=== PATIENT | male | born 1985 | race Caucasian/White ===

== ENCOUNTER 2024-09-20 07:50 | Outpatient (OUT) | payer OTHER, SELFPAY ==
--- NOTE | 2024-09-20 07:57 | XR_ITS ---
The [address] [address] Patient Name: JUNITO LEROY MRN: [id number] date: 1985 Sex: M Assigned Patient Location: [facility] Current Patient Location: [facility] Accession/Order Number: [id number] Exam Date: 09/20/2024 08:00 Report Date: 09/20/2024 15:37 At the request of: EMERY DAY Procedure: XR chest 2V PROCEDURE: XR chest 2V DATE: 09/20/2024 8:00 AM EST COMPARISONS: None. CLINICAL INDICATION: 38 years Male Cough FINDINGS: The cardiomediastinal silhouette and pulmonary vasculature are within normal limits. The lungs are clear. There is no evidence of pleural effusion or pneumothorax. XR/XR chest 2V IMPRESSION: Chest radiograph is within normal limits. Electronically authenticated by: BORIS GIPSON Date: 09/20/2024 15:37
== END 2024-09-20 07:51 | disposition home or self-care (01) ==
LOC: RAD 07:52
PROVIDERS: PCP Family Medicine; Visit Provider Family Medicine
DX: R05.9 Cough, unspecified (principal)
CPT/HCPCS: 71046